=== PATIENT | male | born 1955 | race Caucasian/White ===

== ENCOUNTER 2019-01-21 08:57 | Emergency (ER) | payer BC ==
[2019-01-21 09:49] LABS: BASOPHILS % (AUTO) 0.9 % (0.0-5.0); EOSINOPHILS % (AUTO) 1.3 % (0.0-8.0); HEMATOCRIT 46.6 % (42-54); LYMPHOCYTES % (AUTO) 24.4 % (21.0-51.0); MEAN CORPUSCULAR HEMOGLOBIN 30.9 pg (27.0-33.0); MEAN CORPUSCULAR HGB CONC 34.1 g/dL (32.0-36.0); MEAN CORPUSCULAR VOLUME 90.7 fL (79-99); MONOCYTES % (AUTO) 8.6 % (3.0-13.0); NEUTROPHILS % (AUTO) 64.8 % (40.0-77.0); PLATELET COUNT (AUTO) 155 K/uL (130-400); RED BLOOD CELL COUNT(AUTO) 5.13 MIL/uL (4.50-6.20); RED CELL DISTRIBUTION WIDTH 13.2 % (11.0-15.5); WHITE BLOOD COUNT (AUTO) 6.1 K/uL (4.8-10.8)
[2019-01-21 10:10] LABS: INR 0.95 (0.85-1.15); PARTIAL THROMBOPLASTIN TIME 28.6 SEC (26.3-35.5)
[2019-01-21 10:31] LABS: POTASSIUM 4.3 mmol/L (3.5-5.1)
[2019-01-21] MEDS ORDERED: IOHEXOL-350 75 ML VIAL IV ONE (11:17)
== END 2019-01-21 12:52 | disposition home or self-care (01) ==
LOC: EDH 08:57
DX: R19.7 Diarrhea, unspecified (principal); K62.5 Hemorrhage of anus and rectum; I25.810 Atherosclerosis of coronary artery bypass graft(s) without angina pectoris; I25.2 Old myocardial infarction; E78.5 Hyperlipidemia, unspecified
CPT/HCPCS: 36415; 74177; 80048; 85025; 85610; 85730; 99285; Q9967